=== PATIENT | female | born 1975 | race African-American/Black ===

== ENCOUNTER 2019-03-25 20:50 | Emergency (ER) | payer BC ==
[~2019-03-25] VITALS: Ht 165.1 cm; Wt 145.4 kg
[2019-03-25] MEDS ORDERED: HYDROCODONE/ACETAMINOPHEN 5/325MG TABLET PO ONE (23:45)
[2019-03-26 00:51] VITALS: BP 152/99
== END 2019-03-26 00:56 | disposition left against medical advice (07) ==
LOC: ER 22:57
DX: M25.562 Pain in left knee (principal); Z90.49 Acquired absence of other specified parts of digestive tract
CPT/HCPCS: 99283